=== PATIENT | female | born 1945 | race Caucasian/White ===

== ENCOUNTER 2016-09-24 09:06 | Day surgery (SDC) | payer BC, MEDICARE ==
--- NOTE | ~2016-09-24 | EGD ---
EGD REPORT [facility] [address] [id number] NAME: BESSIE BUCHANAN : [birth year] STATUS : REG [facility]#: [id number] AGE: 71 ADM/REG DATE : 09/24/16 MR#: [id number] REPORT SERV DATE: 09/24/16 DICTATED BY: DATE: REPORT STATUS : Draft TRANSCRIBED BY: [employer] DATE: 09/24/16 [facility] Patient Name: Bessie Buchanan Date of : 1945 Attending MD: FAYE GIPSON MD Procedure Date No Time: 09/24/2016 Procedure: Upper GI endoscopy Indications: Esophageal reflux symptoms that persist despite appropriate therapy, Chronic cough Referring MD: TWILA CARDONA Medicines: General Anesthesia Complications: No immediate complications. Procedure: Pre-Anesthesia Assessment: - ASA Grade Assessment: II - A patient with mild systemic disease. After obtaining informed consent, the endoscope was passed under direct vision. Throughout the procedure, the patient's blood pressure, pulse, and oxygen saturations were monitored continuously. The GIF H190 [id number] was introduced through the mouth, and advanced to the second part of duodenum. The upper GI endoscopy was accomplished without difficulty. The patient tolerated the procedure well after intubation done in the setting of known history laryngospasm and cough, per anesthesia. Findings: A 2 cm hiatus hernia was present. No other significant abnormalities were identified in a careful examination of the esophagus. There is no endoscopic evidence of Carballo's esophagus, areas of erosion, stenosis or ulcerations in the entire esophagus. The entire examined stomach was normal. There is no endoscopic evidence of inflammation, mucosal abnormalities, ulceration or varices in the entire examined stomach. The examined duodenum was normal. There is no endoscopic evidence of inflammation, mucosal abnormalities or ulceration in the entire examined duodenum. The Z-line was regular and was found 34 cm from the incisors. The HAJI capsule with delivery system was introduced through the mouth and advanced into the esophagus, such that the HAJI pH capsule was positioned 28 cm from the incisors, which was 6 cm proximal to the EG junction. Suction was applied to the well of the HAJI pH capsule to suck in the adjacent mucosa of the esophagus using the external vacuum pump set at a minimum vacuum pressure of 550 mmHg for 30 seconds. The EGD REPORT [id number] [place]. [address] NAME: BESSIE BUCHANAN : 43 STATUS : REG [facility] PAT#: [id number] AGE: 71 ADM/REG DATE : 09/24/16 MR#: [id number] REPORT SERV DATE: 09/24/16 DICTATED BY: DATE: REPORT STATUS : Draft TRANSCRIBED BY: [employer] DATE: 09/24/16 HAJI pH capsule was then deployed by depressing the plunger on top of the handle to advance the locking pin into the mucosa, thereby attaching the capsule to the esophagus. The plunger was then rotated a quarter turn clockwise to release the capsule from the delivery system. The delivery system was then withdrawn. Endoscopy was utilized for probe placement and diagnostic evaluation. Impression: - Hiatus hernia. - Normal stomach. - Normal examined duodenum. - Z-line regular, 34 cm from the incisors. - The HAJI pH capsule was positioned 28 cm from the incisors, which was 6 cm proximal to the EG junction. Recommendation: - Patient has a contact number available for emergencies. The signs and symptoms of potential delayed complications were discussed with the patient. Return to normal activities tomorrow. Written discharge instructions were provided to the patient. - Return to previous diet. - Discharge patient to home. - Continue present medications. Procedure Code(s): --- Professional --- 03953, Esophagogastroduodenoscopy, flexible, transoral; diagnostic, including collection of specimen(s) by brushing or washing, when performed (separate procedure) Diagnosis Code(s): --- Professional --- K44.9, Diaphragmatic hernia without obstruction or gangrene K21.9, Gastro-esophageal reflux disease without esophagitis R05, Cough CPT copyright 2013 [employer]. All rights reserved. The codes documented in this report are preliminary and upon supply chain design manager review may be revised to meet current compliance requirements. FAYE GIPSON MD 09/24/2016 10:53 AM This report has been signed electronically. Number of Addenda: 0 EGD REPORT [facility] [address] [address] NAME: BESSIE BUCHANAN : [birth year] STATUS : REG [facility] PAT#: [id number] AGE: 71 ADM/REG DATE : 09/24/16 MR#: [id number] REPORT SERV DATE: 09/24/16 DICTATED BY: DATE: REPORT STATUS : Draft TRANSCRIBED BY: CHELA MOJICA DATE: 09/24/16 Note Initiated On: 09/24/2016 10:11 AM Scope Withdrawal Time 0 hours 0 minutes 0 seconds [address] [facility] [address] [address]
--- NOTE | ~2016-09-24 | EGD ---
EGD REPORT [facility] [address] [address] NAME: BESSIE BUCHANAN : [birth year] STATUS : REG [facility]#: [id number] AGE: 71 ADM/REG DATE : 09/24/16 MR#: [id number] REPORT SERV DATE: 09/24/16 DICTATED BY: DATE: REPORT STATUS : Draft TRANSCRIBED BY: [employer] DATE: 09/24/16 [facility] Patient Name: Bessie Buchanan Date of : 1945 Attending MD: FAYE GIPSON MD Procedure Date No Time: 09/24/2016 Procedure: Colonoscopy Indications: Screening for colorectal malignant neoplasm Referring MD: TWILA CARDONA Medicines: Monitored Anesthesia Care Complications: No immediate complications. Procedure: Pre-Anesthesia Assessment: - ASA Grade Assessment: II - A patient with mild systemic disease. After I obtained informed consent, the scope was passed under direct vision. Throughout the procedure, the patient's blood pressure, pulse, and oxygen saturations were monitored continuously. The PCF H190L [id number] was introduced through the anus and advanced to the cecum, identified by appendiceal orifice and ileocecal valve. The colonoscopy was performed without difficulty. The patient tolerated the procedure well. The quality of the bowel preparation was excellent. Findings: The perianal and digital rectal examinations were normal. A few small-mouthed diverticula were found in the sigmoid colon and at the hepatic flexure. Two sessile polyps were found at the hepatic flexure and in the cecum. The polyps were diminutive in size. These polyps were removed with a cold biopsy forceps. Resection and retrieval were complete. No other significant abnormalities were identified in a careful examination of the remainder of the colon. There is no endoscopic evidence of inflammation, mass, ulcerations or angioectasia in the entire colon. No additional abnormalities were found on retroflexion. Impression: - Diverticulosis in the sigmoid colon and at the hepatic flexure. - Two diminutive polyps at the hepatic flexure and in the cecum. Resected and retrieved. Recommendation: - Patient has a contact number available for emergencies. The signs and symptoms of potential delayed complications were discussed with the patient. Return to EGD REPORT [address] [address] NAME: BESSIE BUCHANAN : [birth year] STATUS : REG [facility] PAT#: [id number] AGE: 71 ADM/REG DATE : 09/24/16 MR#: [id number] REPORT SERV DATE: 09/24/16 DICTATED BY: DATE: REPORT STATUS : Draft TRANSCRIBED BY: [employer] DATE: 09/24/16 normal activities tomorrow. Written discharge instructions were provided to the patient. - High fiber diet indefinitely. - Discharge patient to home. - Continue present medications. - Await pathology results. - Repeat colonoscopy in 5 years for surveillance. Procedure Code(s): --- Professional --- 19995, Colonoscopy, flexible, proximal to splenic flexure; with biopsy, single or multiple Diagnosis Code(s): --- Professional --- K57.30, Diverticulosis of large intestine without perforation or abscess without bleeding D12.3, Benign neoplasm of transverse colon D12.0, Benign neoplasm of cecum Z12.11, Encounter for screening for malignant neoplasm of colon CPT copyright 2013 [employer]. All rights reserved. The codes documented in this report are preliminary and upon death surveys coder review may be revised to meet current compliance requirements. FAYE GIPSON MD 09/24/2016 10:55 AM This report has been signed electronically. Number of Addenda: 0 Note Initiated On: 09/24/2016 10:12 AM Scope Withdrawal Time 0 hours 9 minutes 13 seconds [id number] [id number]
[~2016-09-24 09:06] MED LIST: ALLEGRA180 PO; CO Q-10100 MG PO; CORAL CALCIUM PO; COZ25 PO; FLONASE NAS; FLOVENT DISK100 MCG INH; GLUCCHONDR PO; HARD NAILS PO; HCTZ25B PO; LIPITOR20 PO; MAGOX4 PO; MULTI-VIT HP PO; NEXIUM20 M1 PO; PROBIOTIC PO; SINGULAIR1 PO; SUPER B-C PO; VITE1000 PO; ZYRTEC ALLGY10 MG PO; [UNRECOGNIZED DRUG - OTHER] PO
== END 2016-09-24 23:59 | disposition home or self-care (01) ==
LOC: DMU 09:06
PROVIDERS: Internal Medicine Gastroenterology
PROC: 0DBK8ZX Excision of Ascending Colon, Via Natural or Artificial Opening Endoscopic, Diagnostic (ICD-10-PCS; 2016-09-24)
PROC: 0DJ08ZZ Inspection of Upper Intestinal Tract, Via Natural or Artificial Opening Endoscopic (ICD-10-PCS; principal; 2016-09-24 11:00)
PROC: 0DBH8ZX Excision of Cecum, Via Natural or Artificial Opening Endoscopic, Diagnostic (ICD-10-PCS; 2016-09-24 11:00)
DX: Z12.11 Encounter for screening for malignant neoplasm of colon (principal); D12.0 Benign neoplasm of cecum; D12.3 Benign neoplasm of transverse colon; K57.30 Diverticulosis of large intestine without perforation or abscess without bleeding; K44.9 Diaphragmatic hernia without obstruction or gangrene; K21.9 Gastro-esophageal reflux disease without esophagitis; I10 Essential (primary) hypertension; J45.909 Unspecified asthma, uncomplicated; Z85.3 Personal history of malignant neoplasm of breast; Z88.5 Allergy status to narcotic agent; Z90.12 Acquired absence of left breast and nipple; Z98.890 Other specified postprocedural states
CPT/HCPCS: 88305; 91035; J0330